=== PATIENT | female | born 1955 | race Hispanic/Latino ===

== ENCOUNTER 2017-09-15 06:25 | Day surgery (SDC) | payer BC ==
[2017-09-15 07:25] LABS: BASO # 0.1 K/uL (0.0-0.2); EOS # 0.4 K/uL (0.0-0.7); EOS % 5.8 % (0.0-4.0); HEMATOCRIT 35.9 % (34.0-47.0); LYMPH # 1.7 K/uL (1.0-4.3); LYMPH % 26.3 % (20.0-40.0); MEAN CELL VOLUME 89.9 fL (81.0-99.0); MEAN CORPUSCULAR HEMOGLOBIN 29.7 pg (27.0-31.0); MEAN PLATELET VOLUME 8.8 fL (7.2-11.7); MONO # 0.5 K/uL (0.0-0.8); MONO % 7.6 % (0.0-10.0); NRBC % 0.1 % (0.0-2.0); RED CELL DISTRIBUTION WIDTH 13.6 % (11.5-14.5); WHITE BLOOD COUNT 6.5 K/uL (4.8-10.8)
[2017-09-15] MEDS ORDERED: Midazolam 2 MG/2 ML VIAL ONE (11:44)
[2017-09-15] MEDS ORDERED: Sodium Chloride 0.9% 500 ML IV SCH (12:45)
[2017-09-15 16:16] VITALS: RESP 19; O2SAT 100
--- NOTE | 2017-09-17 09:04 | CARDCATH ---
PROCEDURE DATE: 09/15/2017 PROCEDURES: 1. Left heart catheterization. 2. Coronary angiogram. 3. Radiological supervision and radiological interpretation of the coronary angiogram and left ventricular angiogram. CLINICAL INDICATIONS: 1. Abnormal stress test. 2. Hypertension. 3. Hyperlipidemia. PROCEDURE: After informed consent, the patient was prepped and draped in the usual sterile fashion. A 2% lidocaine was given in the right wrist for local anesthesia. Using micropuncture technique, a 6-Bahamian sheath was introduced into right radial artery. JR4 6-Bahamian catheter engaged into the right coronary artery. A contrast injected and right coronary angiogram was performed. JR4 6 [place]ian diagnostic catheter crossed into left ventricle across aortic valve. LV pressure measured. Contrast injected and LV angiogram was performed. 6 [place] Wagoner catheter engaged into left main coronary artery. Contrast injected and left coronary angiogram was performed. The patient tolerated the procedure well. Postprocedure, the right radial hemostasis accomplished using Terumo radial band. FINDINGS: 1. Left mid coronary artery is patent. 2. LAD of diagonal branches are patent. 3. Left circumflex and obtuse margin branches are patent. 4. Right coronary artery is dominant and patent. 5. LV ejection fraction of approximately 65%. No wall motion abnormalities noted. 6. No gradient across aortic valve. 7. LVEDP is 15. IMPRESSION: 1. Normal coronaries. 2. Normal left ventricular systolic function. Gary Cardona MD
== END 2017-09-15 15:39 | disposition home or self-care (01) ==
LOC: C.CATHLAB 06:25
PROVIDERS: ATTEND Internal Medicine Cardiovascular Disease
DX: R94.39 Abnormal result of other cardiovascular function study (principal); I10 Essential (primary) hypertension; E78.5 Hyperlipidemia, unspecified
CPT/HCPCS: 36415; 85025; 85610; 85730; 93452; 94770; J1644; J2250; J3010; J7040; Q9967